=== PATIENT | male | born 1955 | race Caucasian/White ===

== ENCOUNTER 2021-10-28 09:29 | Observation (INO) ==
[2021-10-28] MEDS ORDERED: 0.9 % Sodium Chloride 1,000 ML IVC ONE (09:47)
[2021-10-28] MEDS ORDERED: Isovue-370 500 ML BOTTLE IVP ONE (09:47)
[2021-10-28 10:05] LABS: Hematocrit 40.8 % (37.5-50.1); Hemoglobin 13.5 g/dL (12.9-16.9); Mean Corpuscular HGB Conc 33.1 g/dL (31.6-35.5); Mean Corpuscular Hemoglobin 28.8 pg (28.0-33.3); Mean Platelet Volume 10.1 fL (9.4-12.4); Platelet Count 281 K/mcL (140-400); Red Blood Count 4.69 M/mcL (4.19-5.50); Red Cell Distribution Width 12.9 % (11.5-14.5)
[2021-10-28 10:14] LABS: Activated Partial Thrombo Time 29.8 Seconds (26.0-36.0)
[2021-10-28 10:30] LABS: Carbon Dioxide 21 mEq/L (23-29); Chloride 105 mEq/L (98-107); Potassium 4.3 mEq/L (3.5-5.1); Sodium 136 mEq/L (136-145); Troponin I < 0.03 ng/mL (< 0.04)
[2021-10-28] MEDS ORDERED: Aspirin 325 MG TABLET PO ONE (10:46)
[2021-10-28 10:51] LABS: BUN/Creatinine Ratio 16 (6-26); Blood Urea Nitrogen 15 mg/dL (8-23); Calcium 9.7 mg/dL (8.6-10.3); Glucose 169 mg/dL (70-105); Osmolality,Calculated 287 (280-300); eGFR For African Americans > 60 (> 60); eGFR For Non-African Americans > 60 (> 60)
[2021-10-28 11:21] LABS: Bilirubin,Urine Negative (Negative); Blood,Urine Negative (Negative); Clarity,Urine Clear (Clear); Color,Urine Colorless (Yellow); Glucose,Urine (UA) Normal (Normal); Ketones,Urine Negative (Negative); Leukocyte Esterase,Urine Negative (Negative); Nitrite,Urine Negative (Negative); PH,Urine 6.5 pH Units (5.0-8.0); Protein,Urine Negative (Neg-Trace); Specific Gravity,Urine 1.028 (1.010-1.025); Urobilinogen,Urine Normal (Normal)
[2021-10-28] MEDS ORDERED: D5% in Water 1,000 ML IVC PRN (11:34)
[2021-10-28] MEDS ORDERED: *HR* Dextrose 50 % in Water (Syg) 50 ML SYRINGE IVP PRN (11:34)
[2021-10-28] MEDS ORDERED: Perflutren Lipid Microsphere 1.3 ML in 0.9 % Sodium Chloride 8.7 ML IVP PRN (11:34)
[2021-10-28] MEDS ORDERED: Dextrose Gel 15 GM/37.5 ML TUBE PO PRN ×2 (11:34)
[2021-10-28 12:08] LABS: Influenza A PCR Negative (Negative); Influenza B PCR Negative (Negative); Resp. Syncytial Virus PCR Negative (Negative)
[2021-10-28 12:12] LABS: SARS-CoV-2 by PCR (In House) Negative (Negative)
[2021-10-28 12:58] LABS: Amphetamine Screen,Urine Negative ng/mL (Cutoff=1000); Barbiturate Screen,Urine Negative ng/mL (Cutoff=200); Benzodiazepines Screen,Urine Negative ng/mL (Cutoff=300); Cannabinoid Screen,Urine Negative ng/mL (Cutoff = 50); Cocaine Screen,Urine Negative ng/mL (Cutoff= 300); Opiate Screen,Urine Negative ng/mL (Cutoff=300); Phencyclidine Screen,Urine Negative ng/mL (Cutoff=25)
[2021-10-28 13:46] LABS: Ethanol < 10 mg/dL (Less than 10)
[2021-10-28] MEDS ORDERED: Insulin LISPRO 300 UNITS/3 ML VIAL SUBQ SCH (16:30)
[2021-10-29] MEDS ORDERED: Levothyroxine 25 MCG TABLET PO SCH (06:30)
[2021-10-29 07:16] VITALS: BP 145/77; PULSE 89; TEMP 98.1; O2SAT 100
[2021-10-29 08:47] LABS: Estimated Average Glucose 189 mg/dl; Hemoglobin A1C 8.2 %
[2021-10-29] MEDS ORDERED: allopurinoL 300 MG TABLET PO SCH (09:00)
[2021-10-29] MEDS ORDERED: Aspirin Enteric Coated 81 MG Tablet PO SCH (09:00)
[2021-10-29] MEDS ORDERED: Metoprolol XL (24 HR) Succ 25 MG TAB.ER.24H PO SCH (09:00)
[2021-10-29 09:02] LABS: Alanine Aminotransferase 25 Units/L (7-52); Albumin 4.1 g/dL (3.5-5.7); Albumin/Globulin Ratio 1.5 (1.1-2.2); Alkaline Phosphatase 40 Units/L (34-104); BUN/Creatinine Ratio 14 (6-26); Bilirubin,Total 0.5 mg/dL (0.3-1.0); Blood Urea Nitrogen 12 mg/dL (8-23); Calcium 9.2 mg/dL (8.6-10.3); Carbon Dioxide 23 mEq/L (23-29); Chloride 105 mEq/L (98-107); Cholesterol 109 mg/dL (< 200); Globulin 2.8 g/dL (2.4-3.5); Glucose 194 mg/dL (70-105); HDL Cholesterol 27 mg/dL (40-59); LDL Cholesterol,Calculated 36 mg/dL (< 100); Osmolality,Calculated 289 (280-300); Sodium 137 mEq/L (136-145); Total Protein 6.9 g/dL (6.4-8.9); Triglycerides 231 mg/dL (< 150); eGFR For African Americans > 60 (> 60); eGFR For Non-African Americans > 60 (> 60)
[2021-10-29 09:09] LABS: Aspartate Amino Transferase 23 Units/L (13-39)
== END 2021-10-29 10:02 | disposition home or self-care (01) ==
LOC: EMEROOARM 09:29 → 3BNU 09:29 → SUATTDRO 13:07 → 3BNU 16:23
PROVIDERS: ADMIT Internal Medicine; ATTEND Internal Medicine